=== PATIENT | female | born 1985 | race Caucasian/White ===

== ENCOUNTER 2024-01-06 10:21 | Outpatient (AMB) | payer OTHER, SELFPAY ==
--- NOTE | 2024-01-06 09:57 | MHC.PC.OV ---
Vital Signs 01/06/24 10:09 BP 98/72 Blood Pressure Location Rt brachial Position Sitting Respiration 12 Pulse 90 Pulse Source Pulse Oximeter Pulse Oximetry (%) 98 Oxygen Delivery Method Room Air Intake Visit Reasons: NPV Intake Note: New patient visit Weaver [employer] Loom Required: No Allergies No Known Allergies Allergy (Verified 01/06/24 09:58) Tobacco use date assessed: 01/06/24 Dental Screening Dental Screen Date: 01/06/24 Did you have a dental visit in the last 12 months?: Yes Did you have a dental problem in the last 6 months where you did not have access to dental care?: No Was dental information given to patient?: Patient has dentist HPI NPV HPI Details Patient is a 38-year-old female who presents today to [facility]. She is transferring from [facility]. 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 She is concerned today about her stomach. She states that 3 years ago she was concerned that she had hemorrhoids and went to a colorectal surgeon who did a scope while in the office and told her that there was no signs. She states a few years ago she would get bleeding on the toilet paper but as the years have gone on she states that it has gotten a bit worse. Over the last month or so it is significantly more prominent and she states that when she has a bowel movement thirst a lot of blood in the toilet bowl. She states it was bright red and she is worried because her stool has changed shape and has become a bit more loose. She states that when it was not lose it is ribbon shaped and she feels like it is trying to get around something. She is very worried that she has rectal cancer. She is also now experiencing lower abdominal pain and cramping. She states that she has pain almost every day for the past week and it does somewhat improve with bowel movements. No weight loss. No family history of colorectal cancer. She states that she is not sure if this is related to something that she has eaten but she is just overall concerned if it is all connected. She has not tried to make any diet changes. No recent travel. No fevers, chills, urinary symptoms. She says that she is fatigued more than her baseline but also attributes this to having 3 young children. 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 Surgical History (Updated 01/06/24 @ 10:05 by Rebecca Powers CMA) H/O section H/O colonoscopy Family History (Updated 01/06/24 @ 10:04 by Rebecca Powers CMA) Brother Substance abuse Father Alcoholism Cancer Hyperlipidemia HTN (hypertension) Mother Bladder cancer Other FH: mental illness Social History Housing: House Alcohol intake: current Patient Tobacco Use Status: Never used Tobacco e-Cigarette/Vaping Use: Never Used Second Hand Smoke Exposure: No Substance Use Type: Former Substance User and Marijuana service: No Current occupational status: employed 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 Current occupational exposures/hazards: No Cognitive needs: No Hearing needs: No Vision needs: No Physical exam (Primary Care) Tobacco/Smoking Status: Tobacco use Status Tobacco use date assessed 01/06/24 01/06/24 10:02 Patient Tobacco Use Status Never used Tobacco 01/06/24 10:02 e-Cigarette/Vaping Use Never Used 01/06/24 10:02 Const Orientation/consciousness: patient oriented x3 HENMT Ears: hearing grossly normal bilaterally Neck Thyroid: Thyroid normal Lymphatic: no lymphadenopathy noted Resp Auscultation: clear to auscultation bilaterally Cardio Rate: regular rate Rhythm: regular rhythm Heart sounds: S1 normal heart sound present and S2 normal heart sound present GI Inspection: Yes normal to inspection Palpation (GI): Soft to palpation and Tenderness to palpation present (GI) in the LLQ and suprapubicly Auscultation: normoactive bowel sounds Rectal Exam - Female: deferred (Declined exam) Skin General skin exam: no rashes or lesions noted Neuro General: patient oriented x3, gait normal and no focal motor deficits Coding Level of Care Code Est Pt Level 4 (46240) Complex EM visit Add On G2211 Diagnoses Rectal bleeding K62.5 Lower abdominal pain R10.30 Change in stool R19.5 Assessment & Plan Assessment & Plan (1) Rectal bleeding: Code(s): K62.5 - Hemorrhage of anus and rectum Category: Medical Plan: As below (2) Lower abdominal pain: Code(s): R10.30 - Lower abdominal pain, unspecified Category: Medical Plan: She does have tenderness on exam today. This is not feel like an acute abdomen. We did review signs and symptoms of abdominal pain that would require emergent medical treatment. Labs ordered today. Referral to GI for consultation regarding colonoscopy. (3) Change in stool: Code(s): R19.5 - Other fecal abnormalities Category: Medical Plan: As above Orders: Orders IRON PROFILE Today K62.5 - Hemorrhage of anus and rectum, R10.30 - Lower abdominal pain, unspecified, R19.5 - Other fecal abnormalities Ferritin Today K62.5 - Hemorrhage of anus and rectum, R10.30 - Lower abdominal pain, unspecified, R19.5 - Other fecal abnormalities Vitamin B12 and Folate Today K62.5 - Hemorrhage of anus and rectum, R10.30 - Lower abdominal pain, unspecified, R19.5 - Other fecal abnormalities TSH reflex Free T4 Today K62.5 - Hemorrhage of anus and rectum, R10.30 - Lower abdominal pain, unspecified, R19.5 - Other fecal abnormalities Endomysial IgA rflx Titer Today K62.5 - Hemorrhage of anus and rectum, R10.30 - Lower abdominal pain, unspecified, R19.5 - Other fecal abnormalities Transglutaminase Ab IgG Today K62.5 - Hemorrhage of anus and rectum, R10.30 - Lower abdominal pain, unspecified, R19.5 - Other fecal abnormalities Immunoglobulin A Today K62.5 - Hemorrhage of anus and rectum, R10.30 - Lower abdominal pain, unspecified, R19.5 - Other fecal abnormalities C Reactive Protein Today K62.5 - Hemorrhage of anus and rectum, R10.30 - Lower abdominal pain, unspecified, R19.5 - Other fecal abnormalities CT abdomen pelvis w IV con Today K62.5 - Hemorrhage of anus and rectum, R10.30 - Lower abdominal pain, unspecified, R19.5 - Other fecal abnormalities Complete Blood Count Auto Diff Today K62.5 - Hemorrhage of anus and rectum, R10.30 - Lower abdominal pain, unspecified, R19.5 - Other fecal abnormalities Comprehensive [place]. Panel Fast Today K62.5 - Hemorrhage of anus and rectum, R10.30 - Lower abdominal pain, unspecified, R19.5 - Other fecal abnormalities Lipid Panel Today K62.5 - Hemorrhage of anus and rectum, R10.30 - Lower abdominal pain, unspecified, R19.5 - Other fecal abnormalities Erythrocyte Sedimentation Rate Today K62.5 - Hemorrhage of anus and rectum, R10.30 - Lower abdominal pain, unspecified, R19.5 - Other fecal abnormalities Calprotectin, Fecal Today K62.5 - Hemorrhage of anus and rectum, R10.30 - Lower abdominal pain, unspecified, R19.5 - Other fecal abnormalities Referrals Gastroenterology Referral K62.5 - Hemorrhage of anus and rectum, R10.30 - Lower abdominal pain, unspecified, R19.5 - Other fecal abnormalities
[2024-01-06 10:09] VITALS: BP 98/72; PULSE 90; RESP 12; O2SAT 98
== END 2024-01-06 10:23 | disposition home or self-care (01) ==
LOC: HO.HMCFM 10:22
PROVIDERS: Visit Provider Physician Assistant
DX: K62.5 Hemorrhage of anus and rectum (principal); R10.30 Lower abdominal pain, unspecified; R19.5 Other fecal abnormalities

== ENCOUNTER → 2024-01-06 10:21 | Outpatient (BNVA) | payer OTHER, SELFPAY | PROVIDERS: Visit Provider Physician Assistant | DX: K62.5 Hemorrhage of anus and rectum (principal); R10.30 Lower abdominal pain, unspecified; R19.5 Other fecal abnormalities | CPT/HCPCS: 99212 ==

== ENCOUNTER 2024-01-06 10:29 | Outpatient (REF) | payer OTHER, SELFPAY ==
[2024-01-06 14:11] LABS: MANUAL DIFF FLAG NO
[2024-01-06 14:22] LABS: Basophils Percent Auto 0.5 % (0-2); Eosinophils Absolute Auto 0.1 X10*3/uL (0.0-0.4); Eosinophils Percent Auto 1.1 % (0-4); Hematocrit 38.2 % (37.0-47.0); Hemoglobin 12.6 g/dl (12.0-16.0); Imm Gran Abs Auto 0.01 X10*3/uL (0.00-0.03); Imm Gran Pct Auto 0.2 % (0.0-0.4); Lymphocytes Absolute Auto 1.4 X10*3/uL (1.2-4.9); Lymphocytes Percent Auto 24.8 % (20-40); Mean Corpuscular Hemoglobin 29.9 pg (27.0-33.0); Mean Corpuscular Volume 90.5 fL (80.0-98.0); Mean Platelet Volume 10.4 fL (9.4-12.3); Monocytes Absolute Auto 0.4 X10*3/uL (0.1-1.2); Neutrophils Absolute Auto 3.8 x10*3/uL (2.0-8.3); Neutrophils Percent Auto 66.4 % (45-73); Platelet Count 222 X10*3/uL (160-400); Red Blood Count 4.22 X10*6/uL (4.20-5.50); Red Cell Distribution Width 12.9 % (11.0-16.0); White Blood Count 5.7 X10*3/uL (4.8-10.8)
[2024-01-06 15:02] LABS: Erythrocyte Sedimentation Rate 7 MM/HR (0-20)
[2024-01-06 15:26] LABS: Ferritin 21 ng/mL (10-122); TSH reflex Free T4 0.58 uIU/mL (0.32-4.0)
[2024-01-06 15:33] LABS: Folate 12.5 ng/mL (> or = 4.0); Vitamin B12 307 pg/mL (200-900)
[2024-01-06 15:48] LABS: Alanine Aminotransferase 17 U/L (0-31); Albumin Level 4.3 g/dL (3.5-5.0); Alkaline Phosphatase 87 U/L (39-117); Anion Gap 9 (12-20); Aspartate Amino Transferase 20 U/L (5-31); Bilirubin Total 0.4 mg/dL (0.0-1.0); Blood Urea Nitrogen 11 mg/dL (9-16); C Reactive Protein 0.12 mg/dL (< or = 0.50); Calcium 9.1 mg/dL (8.4-10.2); Carbon Dioxide 31 mmol/L (22-29); Chloride 103 mmol/L (96-108); Cholesterol 203 mg/dL (<200); Estimated Glomerular Filt Rate > 60; Glucose Fasting 83 mg/dL (60-99); HDL Cholesterol 60 mg/dL (>40); Iron 117 mcg/dL (30-160); LDL Cholesterol Calculated 119 mg/dL (<100); Percent Iron Saturation 37 % (15-50); Potassium 3.9 mmol/L (3.3-5.1); Sodium 139 mmol/L (135-145); Total Iron Binding Capacity 313 mcg/dL (228-428); Total Protein 6.9 g/dL (6.5-8.0); Triglycerides 122 mg/dL (<150); Unsaturated Iron Binding 196 ug/dL
[2024-01-08 00:57] LABS: Immunoglobulin A 214 mg/dL (47-310)
[2024-01-10 22:59] LABS: Transglutaminase Ab IgG <1.0 U/mL
[2024-01-11 22:24] LABS: Endomysial IgA Antibody Negative (Negative)
== END 2024-01-06 10:30 | disposition home or self-care (01) ==
LOC: HO.WFDLDS 10:29
PROVIDERS: Visit Provider Physician Assistant
DX: K62.5 Hemorrhage of anus and rectum (principal); R10.30 Lower abdominal pain, unspecified; R19.5 Other fecal abnormalities
CPT/HCPCS: 36415; 80053; 80061; 82607; 82728; 82746; 82784; 83540; 84443; 85025; 85652; 86140; 86231; 86364

== ENCOUNTER 2024-07-27 09:10 | Outpatient (AMB) | payer OTHER, SELFPAY ==
--- NOTE | 2024-07-27 09:20 | MHC.PC.OV ---
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 GI: She was seen this fall with complaints of rectal bleeding and lower abdominal pain. She did have a CT of the abdomen and pelvis which did show an adnexal cyst with recommendation for a pelvic ultrasound to ensure resolution/stability. She did not do this. States that she forgot about this. She did end up with a colonoscopy which showed benign polyps. Rectal bleeding resolved. Psych: She has been struggling with some anxiety and depression recently. She says that she feels overwhelmed with all the things that she has to do and often loses track of everything. She thinks that she would benefit from medication. She has been trying to hold off on this but feels that she would benefit from something that helps her with focus and feeling more energized. No SI/HI. Angiographer: Up-to-date [facility] Surgical History (Updated 01/06/24 @ 10:05 by Rebecca Powers CMA) H/O section H/O colonoscopy Family History (Updated 01/06/24 @ 10:04 by Rebecca Powers CMA) Brother Substance abuse Father Alcoholism Cancer Hyperlipidemia HTN (hypertension) Mother Bladder cancer Other FH: mental illness Social History (Updated 01/06/24 @ 10:05 by Rebecca Powers CMA) Housing: House Alcohol intake: current Patient Tobacco Use Status: Never used Tobacco e-Cigarette/Vaping Use: Never Used Second Hand Smoke Exposure: No Substance Use Type: Former Substance User and Marijuana service: No Current occupational status: employed 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 Current occupational exposures/hazards: No Cognitive needs: No Hearing needs: No Vision needs: No Questionnaire PHQ-9 Over the last 2 weeks, how often have you been bothered by any of the following problems? 1. Little interest or pleasure in doing things: more than half the days 2. Feeling down, depressed, or hopeless: several days 3. Trouble falling or staying asleep, or sleeping too much: more than half the days 4. Feeling tired or having little energy: more than half the days 5. Poor appetite or overeating: several days 6. Feeling bad about yourself - or that you are a failure or have let yourself or your family down: several days 7. Trouble concentrating on things, such as reading the newspaper or watching television: several days 8. Moving or speaking so slowly that other people could have noticed. Or the opposite - being so fidgety or restless that you have been moving around a lot more than usual: not at all 9. Thoughts that you would be better off or of hurting yourself in some way: not at all Total score: 10 Depression Screening Interpretation: Positive Depression Screening Follow-up: New Medication prescribed and Follow-up Visit Requested Depression Screening Done: Yes 15231 - PHQ-9 Billing: Yes Source: Developed by Drs. Sidney Amaya, Nadine Morrow, Drew Mohan and colleagues, with an educational abraham from [employer]. Thrive Questionnaire Date Thrive assessed: 07/27/24 I am a: Patient What is your living situation today?: I have a steady place to live Within the past 12 months, did the food you bought not last and you didn't have the money to get more?: Never true Within the past 12 months, did you worry whether your food would run out before you got money to buy more?: Never true Do you have trouble paying for medicines?: No Do you have trouble getting transportation to medical appointments?: No Do you have trouble paying your heating and electricity bill?: No Do you have trouble taking care of your child, family member or friend?: No Do you have trouble with day-to-day activities such as bathing, preparing meals, shopping, managing finances, etc.?: No Are you currently unemployed and looking for a job?: No Are you interested in more education?: No Please select the resources that you would like help with: None Currently or been in a relationship where the following occur: No concerns reported THRIVE Score: 0 AUDIT C Alcohol Use Questionnaire (AUDIT-C) 1. How often do you have a drink containing alcohol?: Never 3. How often do you have six or more drinks on one occasion?: Never Total Score: 0 EFFIE-7 AMB Questionnaire EFFIE-7 Date EFFIE - 7 assessed: 07/27/24 Feeling nervous, anxious, or on edge: 2 = More than half the days Not being able to stop or control worryin = Several days Worrying too much about different things: 0 = Not at all Trouble relaxin = Not at all Being so restless that it is hard to sit still: 0 = Not at all Becoming easily annoyed or irritable: 0 = Not at all Feeling afraid as if something awful might happen: 0 = Not at all Total EFFIE-7 score (0-4 normal; 5-9 mild; 10-14 moderate; 15-21 severe): 3 Source: Developed by Drs. Sidney Amaya, Nadine Morrow, Drew Mohan and colleagues, with an educational abraham from [employer]. EFFIE-7 Assessment Billing EFFIE-7 Assessment Tool: EFFIE-7 Assessment 48079 Physical exam (Primary Care) Vital Signs: Last Vital Signs Pulse 95 07/27/24 09:21 Resp 12 07/27/24 09:21 BP 98/64 07/27/24 09:21 Pulse Ox 98 07/27/24 09:21 Oxygen Delivery Method Room Air 07/27/24 09:21 BMI result Body Mass Index 24.6 Tobacco/Smoking Status: Tobacco use Status Tobacco use date assessed 07/27/24 07/27/24 09:23 Patient Tobacco Use Status Never used Tobacco 07/27/24 09:38 e-Cigarette/Vaping Use Never Used 07/27/24 09:38 PHQ-9: PHQ-9 Score PHQ-9: Total score 10 07/27/24 09:38 Depression Screening Interpretation: Positive Depression Screening Follow-up: New Medication prescribed and Follow-up Visit Requested Thrive Assessment: Date of Thrive Assessment Date Thrive assessed 07/27/24 07/27/24 09:23 Currently or been in a relationship where the following occur: No concerns reported Const Orientation/consciousness: patient oriented x3 HENMT Ears: hearing grossly normal bilaterally and TM's normal bilaterally General nose exam: No nasal polyps present Face and sinus: Yes sinuses nontender Mouth: Normal oral and palatal mucosa present Eyes Pupils: Equal, round and reactive pupils present EOM: EOMs intact bilaterally Neck Neck: Yes full ROM and Yes no lymphadenopathy Thyroid: Thyroid normal Chest Chest palpation & inspection: normal inspection of the chest Resp Auscultation: clear to auscultation bilaterally Cardio Rate: regular rate Rhythm: regular rhythm Heart sounds: S1 normal heart sound present and S2 normal heart sound present Peripheral pulses: Peripheral pulses 2+ throughout GI Other: Soft, nontender Auscultation: normal bowel sounds Rectal Exam - Female: deferred General: Yes no CVA tenderness Back/Spine/Pelvis Other: Nontender Back: no CVA tenderness Skin General skin exam: no rashes or lesions noted Neuro General: patient oriented x3, gait normal, CN's II-XI intact bilaterally and deep tendon reflexes 2+ bilaterally Cranial nerves: Yes Equal, round and reactive pupils present Motor exam (neuro): 5/5 motor strength present throughout Sensory Exam: double simultaneous stimulation for sensation normal Coordination: [id number] test normal and Romberg test negative Extrem General: Yes normal to inspection and Yes full ROM Psych Affect: normal affect Attitude: cooperative Thought process: Normal thought process present Thought content: Normal thought content present Insight: Good insight present (Psych) Judgement: Good judgement present (Psych) Results Reviewed Results Reviewed: Laboratory Tests 01/06/24 10:32 WBC 5.7 RBC 4.22 Hgb 12.6 Hct 38.2 Plt Count 222 Sodium 139 Potassium 3.9 Chloride 103 Carbon Dioxide 31 H Anion Gap 9 L BUN 11 Creatinine 0.68 Estimated GFR > 60 Fasting Glucose 83 Triglycerides 122 Cholesterol 203 H LDL Cholesterol, Calc 119 H HDL Cholesterol 60 Vitamin B12 307 Coding Level of Care Code Est Pt Prev Care 18-39y(85803) Diagnoses Routine general medical examination at a health care facility Z00.00 Adnexal cyst N94.9 B12 deficiency E53.8 Vitamin D insufficiency E55.9 Attention deficit R41.840 Dysthymia F34.1 Additional Codes PHQ-9 - 78119 - PHQ-9 Billing: Yes ([id number]) EFFIE-7 Assessment Billing - EFFIE-7 Assessment Tool: EFFIE-7 Assessment 73843 ([id number]) Assessment & Plan Assessment & Plan (1) Routine general medical examination at a health care facility: Code(s): Z00.00 - Encounter for general adult medical examination without abnormal findings Plan: reviewed labs ordered (2) Adnexal cyst: Code(s): N94.9 - Unspecified condition associated with female genital organs and menstrual cycle Category: Medical Plan: Pelvic ultrasound reordered (3) B12 deficiency: Code(s): E53.8 - Deficiency of other specified B group vitamins Category: Medical Plan: We will start vitamin B12 (4) Vitamin D insufficiency: Code(s): E55.9 - Vitamin D deficiency, unspecified Category: Medical Plan: Check vitamin-D (5) Attention deficit: Code(s): R41.840 - Attention and concentration deficit Category: Medical Plan: We will try Wellbutrin. Discussed risks and benefits and adverse effects of this medication. (6) Dysthymia: Code(s): F34.1 - Dysthymic disorder Category: Medical Plan: As above. Orders: Orders US pelvic and transvaginal Today N94.9 - Unspecified condition associated with female genital organs and menstrual cycle Comprehensive Met. Panel Today E53.8 - Deficiency of other specified B group vitamins, E55.9 - Vitamin D deficiency, unspecified Vitamin B12 and Folate Today E53.8 - Deficiency of other specified B group vitamins, E55.9 - Vitamin D deficiency, unspecified TSH reflex Free T4 Today E53.8 - Deficiency of other specified B group vitamins, E55.9 - Vitamin D deficiency, unspecified Complete Blood Count Auto Diff Today E53.8 - Deficiency of other specified B group vitamins, E55.9 - Vitamin D deficiency, unspecified Vitamin D 25-OH Total Today E53.8 - Deficiency of other specified B group vitamins, E55.9 - Vitamin D deficiency, unspecified Medications: New bupropion HCl XL (Wellbutrin XL) 150 mg PO QAM 90 tabs 0RF cyanocobalamin (vitamin B-12) 1,000 mcg PO DAILY 90 caps 0RF
[2024-07-27 09:21] VITALS: BP 98/64; PULSE 95; RESP 12; O2SAT 98; BMI 24.6
== END 2024-07-27 14:34 | disposition home or self-care (01) ==
LOC: HO.HMCFM 09:11
PROVIDERS: PCP Physician Assistant; Visit Provider Physician Assistant
DX: Z00.00 Encounter for general adult medical examination without abnormal findings (principal); N94.9 Unspecified condition associated with female genital organs and menstrual cycle; E53.8 Deficiency of other specified B group vitamins; E55.9 Vitamin D deficiency, unspecified; R41.840 Attention and concentration deficit; F34.1 Dysthymic disorder

== ENCOUNTER → 2024-07-27 09:10 | Outpatient (BNVA) | payer OTHER, SELFPAY | PROVIDERS: Visit Provider Physician Assistant | DX: Z00.00 Encounter for general adult medical examination without abnormal findings (principal); K62.5 Hemorrhage of anus and rectum; R10.30 Lower abdominal pain, unspecified; F41.9 Anxiety disorder, unspecified; F32.A Depression, unspecified; N94.9 Unspecified condition associated with female genital organs and menstrual cycle; E53.8 Deficiency of other specified B group vitamins; E55.9 Vitamin D deficiency, unspecified; R41.840 Attention and concentration deficit; F34.1 Dysthymic disorder | CPT/HCPCS: 96127; 99395 ==

== ENCOUNTER 2024-09-15 10:54 | Outpatient (REF) | payer OTHER, SELFPAY ==
--- NOTE | ~2024-09-15 | US_ITS ---
CLINICAL HISTORY: N94.9 - rt adnexal lesion on ct --- Additional Notes or Special Instructions: right adnexal lesion noted on CT Ultrasound of the female pelvis Comparison: None provided Technique: Grayscale ultrasound with assistance of color Doppler. Transabdominal scanning performed for overall anatomy. Transvaginal scanning performed for better anatomic delineation. Findings: Anteverted uterus measures 7.8 x 3.2 x 4.6 cm. Homogeneous myometrium, no uterine fibroid is seen. Normal endometrium, 5 mm in thickness. Normal cervix. Normal right ovary, 3.0 x 2.2 x 2.2 cm. No abnormal vascular flow. Normal left ovary, 3.0 x 2.2 x 1.1 cm. No abnormal vascular flow. No free fluid. Impression: Normal exam. This document has been electronically signed by: Heidi Garay MD on 09/16/2024 13:20:40
== END 2024-09-15 10:55 | disposition home or self-care (01) ==
LOC: HO.US 10:54
PROVIDERS: PCP Physician Assistant; Visit Provider Physician Assistant
DX: N94.9 Unspecified condition associated with female genital organs and menstrual cycle (principal)
CPT/HCPCS: 76830; 76856

== ENCOUNTER → 2024-09-15 10:56 | Outpatient (BNV) | payer OTHER, SELFPAY | PROVIDERS: PCP Physician Assistant; Visit Provider Radiology Diagnostic Radiology | DX: N83.8 Other noninflammatory disorders of ovary, fallopian tube and broad ligament (principal) | CPT/HCPCS: 76830; 76856 ==